=== PATIENT | male | born 1960 | race Caucasian/White ===

== ENCOUNTER → 2019-06-02 | Outpatient (CLI) | payer BC ==
[~2019-06-02] MED LIST: ACETAMINOPHEN325 M1 PO; IBUPROFEN 800800 M1 PO; LOVENOX; MULTIVITAMINS; PERCOCET 7.5-31 EACH PO; VICODIN ES TAB1 EACH PO
== END ==
LOC: M.CT 11:56
DX: J43.9 Emphysema, unspecified (principal); J98.4 Other disorders of lung